=== PATIENT | male | born 2000 | race Asian ===

== ENCOUNTER 2018-01-31 07:43 | Emergency (ER) | payer OTHER ==
[~2018-01-31] VITALS: Ht 157.5 cm; Wt 54.4 kg
[2018-01-31 07:45] VITALS: BP_SYST 120
[2018-01-31 08:10] VITALS: BP_SYST 120
== END 2018-01-31 08:10 ==
LOC: SED 07:43
DX: F10.129 Alcohol abuse with intoxication, unspecified (principal); V47.9XXA Unspecified car occupant injured in collision with fixed or stationary object in traffic accident, initial encounter; Y93.89 Activity, other specified; Y92.89 Other specified places as the place of occurrence of the external cause; Y99.8 Other external cause status
CPT/HCPCS: 99283